=== PATIENT | female | born 1960 | race Caucasian/White ===

== ENCOUNTER → 2017-03-07 | Outpatient (CLI) | payer BC ==
[2016-01-17 08:46] VITALS: BP 156/90
[2017-03-07 14:44] LABS: FREE T4 (FREE THYROXINE) 1.02 ng/dL (0.76-1.46); TSH (3RD GENERATION) 0.749 uIU/mL (0.358-3.74)
== END ==
LOC: LAB 14:03
PROVIDERS: ATTEND Internal Medicine
DX: E03.8 Other specified hypothyroidism (principal)
CPT/HCPCS: 36415; 84439; 84443

== ENCOUNTER → 2017-11-07 | Outpatient (CLI) | payer BC ==
[2016-01-17 08:46] VITALS: BP 156/90
--- NOTE | 2017-11-07 14:05 | MG ---
HISTORY: SCREENING Comparison: Multiple priors dating back to 1999 FINDINGS: Bilateral CC and MLO projections of the right and left breast were obtained. Heterogeneously dense f ibroglandular tissue is seen to be present without suspicious interval change. No new or developing architectural distortion, mass or clustered microcalcifications can be observed to suggest malignancy . Previously described lower outer left breast nodule has resolved with otherwise stable scattered re gions of bilateral focal asymmetry and nodularity. No skin thickening or nipple retraction is appreci ated. No pathological lymphadenopathy can be identified. Benign-appearing calcifications are noted within the right and left breast. IMPRESSION: NO RADIOGRAPHIC EVIDENCE OF MALIGNANCY. ACR CATEGORY 2 - benign findings. FOLLOW-UP EXAM 1 YEAR. Diagnostic CAD was utilized and reviewed. * 0 (ZERO) - ASSESSMENT INCOMPLETE; ADDITIONAL IMAGING IS NEEDED. * 1/1 (ONE) - NEGATIVE. * 2/II (TWO) - BENIGN FINDINGS. * 3/III (THREE) - PROBABLY BENIGN FINDING; SHORT INTERVAL FOLLOW-UP SUGGESTED. * 4/IV (FOUR) - SUSPICIOUS ABNORMALITY; BIOPSY SHOULD BE CONSIDERED. * 5/V - HIGHLY SUSPICIOUS OF MALIGNANCY; BIOPSY SHOULD BE PERFORMED. A NEGATIVE X-RAY REPORT SHOULD NOT DELAY BIOPSY IF A DOMINANT OR CLINICALLY SUSPICIOUS MASS IS PRESENT; 4 TO 8 PERCENT OF CANCERS ARE NOT IDENTIFIED BY X-RAY. A NEGA TIVE REPORT MAY REINFORCE THE CLINICAL IMPRESSION. ADENOSIS AND DENSE BREASTS MAY OBSCURE AN UNDERLY ING NEOPLASM. Reported By:
== END ==
LOC: RAD 10:56
PROVIDERS: ATTEND Specialist
DX: Z12.31 Encounter for screening mammogram for malignant neoplasm of breast (principal)
CPT/HCPCS: 77067

== ENCOUNTER → 2017-11-19 | Outpatient (CLI) | payer BC ==
[2016-01-17 08:46] VITALS: BP 156/90
--- NOTE | 2017-11-19 08:13 | CT ---
Exam: CT of the abdomen/pelvis without contrast History: 57-year-old female with hematuria for several months. Previous history of renal calculi Comparison: Previous CT of the abdomen/pelvis from 01/17/2016. Technique: Axial imaging was performed through the abdomen and pelvis without administering intraveno us contrast. Coronal and sagittal reformations were generated. Automated exposure control protocol wa s used for this exam. Findings: The lung bases are clear with no infiltrate or pleural effusion on either side. The liver, spleen, pancreas, adrenal glands, and gallbladder are all normal appearing. Several tiny ( 2 mm) nonobstructing radiopaque calculi are seen in both kidneys. However no hydronephrosis, ureteral dilatation, or renal mass is seen on either side. Large and small bowel demonstrate no evidence of obstruction or inflammatory changes. Scattered diver ticula are present in the descending and sigmoid colon however. Evaluation of the pelvis demonstrates normal-appearing uterus. No adnexal mass on either side. The bl adder is decompressed. No osseous abnormality is identified. Impression: 1. Several tiny (2 mm) nonobstructing radiopaque calculi are seen in both kidneys. However no sign of urinary tract obstruction is seen on today's exam. 2. Diverticulosis involving the descending and sigmoid colon though without definite evidence of infl ammation. Reported By:
== END ==
LOC: RAD 07:02
PROVIDERS: ATTEND Specialist
DX: R31.0 Gross hematuria (principal)
CPT/HCPCS: 74176